=== PATIENT | female | born 1950 | race Caucasian/White ===

== ENCOUNTER 2019-05-11 08:01 | Outpatient (REF) | payer MEDICARE, SELFPAY ==
[2019-05-11 11:27] LABS: Estmated Average Glucose 103; Hemoglobin A1C 5.2 % (4.0-6.0)
[2019-05-11 14:04] LABS: Chol HDL Ratio 3.51 mg/dL (0.0-4.40); Cholesterol 246 mg/dL (0-200); Glucose 83 mg/dL (65-115); HDL Cholesterol 70 mg/dL (60-100); LDL Cholesterol Calculated 152 mg/dL (50-129); LDL HDL Ratio 2.17 RATIO (0.00-3.22); Triglycerides 119 mg/dL (0-150)
== END 2019-05-11 08:02 | disposition home or self-care (01) ==
LOC: LAB 08:01
PROVIDERS: Family Provider Electrodiagnostic Medicine; PCP Electrodiagnostic Medicine; Visit Provider Dermatology
DX: Z01.89 Encounter for other specified special examinations (principal)
CPT/HCPCS: 80061; 82947; 83036

== ENCOUNTER 2020-01-02 09:49 | Outpatient (CLI) | payer MEDICARE, SELFPAY ==
--- NOTE | 2020-01-02 10:02 | MM_ITS ---
WS: [id number] BILATERAL DIGITAL SCREENING MAMMOGRAPHY WITH CAD CLINICAL INFORMATION: SCREENING HISTORY: Screening mammogram. No current complaints. COMPARISON: May 09, 2015 TECHNIQUE: Bilateral CC and MLO views. FINDINGS: Scattered fibroglandular densities bilaterally. No suspicious focal mass, asymmetry, calcifications, or architectural distortion. No evidence of malignancy. Vascular calcification. MM/[place] [id number] IMPRESSION: BI-RADS: 2-Benign FOLLOW UP: 1 Year Follow-up Recommend return to annual screening mammography.
--- NOTE | 2020-01-02 11:45 | USCV_ITS ---
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
== END 2020-01-02 09:50 | disposition home or self-care (01) ==
PROVIDERS: PCP Electrodiagnostic Medicine; Visit Provider Electrodiagnostic Medicine
DX: Z12.31 Encounter for screening mammogram for malignant neoplasm of breast (principal); M79.604 Pain in right leg; M79.605 Pain in left leg
CPT/HCPCS: 77067; 93922

== ENCOUNTER 2020-02-19 12:27 | Outpatient (CLI) | payer MEDICARE, SELFPAY ==
--- NOTE | 2020-02-19 12:45 | USCV_ITS ---
[facility] Age: 69 Gender: F : 1950 Exam Date: 02/19/2020 13:06 Ordering Phys: Deborah Arroyo MD ([email or web address]) Technologist: Kranthi Lindsay [place] [facility] [place]: HISTORY: PROCEDURES: FINDINGS: The veins were found to be easily compressible with spontaneous blood flow. Non pulsatile flow pattern. No significant venous reflux in the deep veins No significant venous reflux in the superficial veins CONCLUSIONS No evidence of DVT in the above-mentioned identifiable veins. No evidence of any superficial vein thrombosis No significant venous reflux either in the superficial or deep veins bilaterally Normal caliber veins bilaterally Dr Deborah Arroyo MD [facility] (Electronically Signed) Final Date: 19 February 2020 18:18 S
== END 2020-02-19 12:28 | disposition home or self-care (01) ==
LOC: RAD 12:32
PROVIDERS: PCP Electrodiagnostic Medicine; Visit Provider Internal Medicine Cardiovascular Disease
DX: M79.89 Other specified soft tissue disorders (principal)
CPT/HCPCS: 93970

== ENCOUNTER → 2020-10-08 10:50 | Outpatient (BNVA) | payer MEDICARE, SELFPAY | PROVIDERS: PCP Electrodiagnostic Medicine; Visit Provider Nurse Practitioner Women's Health | DX: Z01.419 Encounter for gynecological examination (general) (routine) without abnormal findings (principal); R39.15 Urgency of urination; M85.80 Other specified disorders of bone density and structure, unspecified site | CPT/HCPCS: 88175 ==

== ENCOUNTER → 2021-07-08 13:47 | Outpatient (BNVA) | payer MEDICARE, SELFPAY | PROVIDERS: PCP Electrodiagnostic Medicine; Visit Provider Podiatrist Foot & Ankle Surgery | DX: M20.41 Other hammer toe(s) (acquired), right foot (principal); M20.42 Other hammer toe(s) (acquired), left foot; L84 Corns and callosities | CPT/HCPCS: 99203 ==

== ENCOUNTER 2021-07-10 06:22 | Outpatient (CLI) | payer MEDICARE, SELFPAY ==
--- NOTE | 2021-07-10 | USCV_ITS ---
Allyn Judd Age: 71 Gender: F : 1950 Exam Date: 07/10/2021 06:12 Ordering Phys: Kermit Shah DO Technologist: Jose Miguel Ku [place] [facility] [place]: leg pain RIGHT LEFT Brachial 125.00 mmHg Brachial 125.00 mmHg Pressure (mmHg) Waveform Pressure (mmHg) Waveform 143.00 LEGAL MEDIATOR 147.00 145.00 DPA 150.00 1.10 Ankle/Brachial Index 1.10 117.00 Pre-Exercise Toe Pressure 96.00 0.92 Pre-Exercise Toe/Brachial Index 0.76 FINDINGS Normal resting ABIs bilaterally Normal resting TBIs bilaterally CONCLUSIONS No evidence of any significant arterial obstruction, based on the above findings. Dr Deborah Arroyo MD [facility] (Electronically Signed) Final Date: 10 July 2021 18:46 S
== END 2021-07-10 06:23 | disposition home or self-care (01) ==
LOC: RAD 06:23
PROVIDERS: PCP Electrodiagnostic Medicine; Visit Provider Electrodiagnostic Medicine
DX: M79.604 Pain in right leg (principal)
CPT/HCPCS: 93922

== ENCOUNTER → 2021-09-14 16:15 | Outpatient (BNVA) | payer MEDICARE, SELFPAY | PROVIDERS: PCP Electrodiagnostic Medicine; Visit Provider Obstetrics & Gynecology | DX: N81.10 Cystocele, unspecified (principal) | CPT/HCPCS: 87086 ==

== ENCOUNTER → 2021-09-25 12:05 | Outpatient (BNVA) | payer MEDICARE, SELFPAY | PROVIDERS: PCP Electrodiagnostic Medicine; Visit Provider Obstetrics & Gynecology | DX: N81.2 Incomplete uterovaginal prolapse (principal); R39.15 Urgency of urination; Z87.440 Personal history of urinary (tract) infections | CPT/HCPCS: 81000; 87086 ==

== ENCOUNTER 2021-12-09 14:15 | Observation (INO) | payer MEDICARE, SELFPAY ==
--- NOTE | 2021-12-08 14:24 | ANES.PREANE2 ---
Pre-Anesthetic Assessment Height/Weight: Height 1.63 m Operation Date: 12/09/21 08:50 Proposed Procedures p Total vagina hysterectomy, bilateral salpingo-oohorectomy 21397, anterior and posterior colporrhaphy 90842, Single incison sling 33928,N81.2,N81.0,N81.6(Not Applicable) - Nitin Dixon MD s Salpingo-Oophorectomy (Vaginal)(Bilateral) - Nitin Dixon MD s Anterior Repair Anterior Colporrhaphy(Not Applicable) - Nitin Dixon MD s Posterior Repair Posterior Colporrhaphy(Not Applicable) - Nitin Dixon MD s Sling Single Incision Sling(Not Applicable) - Nitin Dixon MD Familial anesthetic complications: None Social No alcohol and No tobacco Exam alert, oriented x 3, clear to auscultation bilaterally and regular rate & rhythm Airway Mallampati: Class II Dentition: false and partials Pulmonary None reported CV/HEM None reported None reported Hepatic None reported GI None reported Metabolic [place] [facility] [place] None reported Neuropsych None reported Anesthetic Plan ASA status: 2 Risk of > 500 ml blood loss (7ml/kg in children): No Medications/Allergies Home Medications Medication Instructions Recorded Confirmed Last Taken Type coenzyme Q10 200 mg capsule (Co 200 mg PO DAILY 01/30/20 12/08/21 Unknown History Q-10) ascorbate calcium (vitamin C) 500 500 mg PO DAILY 09/14/21 12/08/21 Unknown History mg tablet cholecalciferol (vitamin D3) 50 50 mcg PO DAILY 09/14/21 12/08/21 Unknown History mcg (2,000 unit) capsule levothyroxine 100 mcg capsule 100 mcg PO DAILY 09/14/21 12/08/21 Unknown History magnesium carbonate PO 09/14/21 12/08/21 Unknown History multivitamin 1 tab PO DAILY 09/14/21 12/08/21 Unknown History omega 9-unt-rrj-fish oil 60 mg-90 1 cap PO DAILY 09/14/21 12/08/21 Unknown History mg-500 mg capsule (Fish Oil) cranberry 400 mg capsule 400 mg PO DAILY 12/08/21 12/08/21 Unknown History lactobacillus combination no.4 3 3,000 mmu cells PO DAILY 12/08/21 12/08/21 Unknown History billion cell capsule (Probiotic) melatonin 5 mg capsule mg PO .hs PRN 12/08/21 12/08/21 Unknown History zinc acetate PO .daily 12/08/21 12/08/21 Unknown History Allergies Allergy/AdvReac Type Severity Reaction Status Date / Time sulfamethoxazole Allergy Unknown Rash Verified 12/08/21 14:05 [From Bactrim] Tetracyclines Allergy Unknown Rash Verified 12/08/21 14:05 [facility] Anesthesia Medical History (Updated 09/25/21 @ 12:11 by Nitin Dixon MD) Hypothyroid Diagnosed 15 years ago managed by Dr. Shah Mixed hyperlipidemia No pertinent past medical history Denies diabetes, asthma, hypertension, seizures, DVT/PE PCP: Dr. Shah Peripheral arterial disease Vitiligo Surgical History (Updated 09/18/21 @ 12:39 by Vickie Dalton MD) H/O bladder repair surgery (~2012) [place]-- sling . Denies having any surgery on her bladder at that time History of bilateral ligation of fallopian tubes 1977-- via umbilicus History of bunionectomy (~1994) 1994--bilateral History of nasal septoplasty History of tonsillectomy At age 16 Hx of appendectomy 2003--laparoscopic procedure S/P ORIF (open reduction internal fixation) fracture (~2004) left ankle Family History Mother Colon cancer Dx age 74-- was stage four at time of diagnosis Hypertension Stroke Sister Hypertension Denies family history of Ovarian cancer Diabetes Heart disease Hypercholesteremia Breast cancer Uterine cancer Thyroid disease Social History Smoking and tobacco status: former smoker Data Anesthesia Cardiac Studies: No Data to Display
[2021-12-08 14:33] VITALS: BMI 25.9
[2021-12-08 15:24] LABS: Basophils % 0.5 %; Eosinophils % 0.2 %; Hematocrit 40.9 % (37.0-47.0); Lymphocytes # 1.5 10^3/uL (0.8-4.8); Lymphocytes % 27.7 %; Mean Corpuscular HGB Conc 34.2 g/dL (30.0-36.0); Mean Corpuscular Hemoglobin 32.9 pg (28.0-34.0); Mean Corpuscular Volume 96.2 fl (81-99); Mean Platelet Volume 10.6 fL (7.4-10.4); Monocytes # 0.5 10^3/uL (0.2-0.9); Monocytes % 8.7 %; Neutrophils # 3.45 10^3/uL (1.8-7.7); Neutrophils % 62.5 %; Nucleated Red Blood Cells % 0 %; Platelet Count 195 10^3/cmm (130-400); Red Blood Count 4.25 10^6/uL (4.1-5.3); Red Cell Distribution Width 11.4 % (12.1-15.1); White Blood Count 5.5 10^3/uL (4.0-10.0)
[2021-12-09] VITALS (14 sets, daily range): BP systolic 92–126; BP diastolic 47–77; PULSE 72–100; RESP 14–18; TEMP 36.1–36.6; O2SAT 90–97
[2021-12-09] MEDS: sodium chloride 0.9% 500 ML IV (08:04)
[2021-12-09] MEDS: scopolamine 1.5 Patch 1 PATCH TRANSDERMA (08:07)
[2021-12-09] MEDS: enoxaparin 30 mg/0.3 mL Syringe SUBCUT (08:10)
--- NOTE | 2021-12-09 08:27 | P.ANESUD_ITS ---
Pre-Anesthetic Update Pre-Anesthetic Assessment: Date of Surgery/Procedure: 12/09/21 Preop Brigitte gnosis: Uterine prolapse, cystocele stage III Proposed Procedure: Operation Date: 12/09/21 08:50 Proposed Procedures p Total vagina hysterectomy, bilateral salpingo-oohorectomy 14582, anterior and posterior colporrhaphy 44802, Single incison sling 39076,N81.2,N81.0,N81.6(Not Applicable) - Nitin Dixon MD s Salpingo-Oophorectomy (Vaginal)(Bilateral) - Nitin Dixon MD s Anterior Repair Anterior Colporrhaphy(Not Applicable) - MD ema [place] Posterior Repair Posterior Colporrhaphy(Not Applicable) - Nitin Dixon MD s Sling Single Incision Sling(Not Applicable) - Nitin Dixon MD Any changes to Pre-Anesthetic Assessment?: No Last Intake: Intake Last Liquid Date 12/08/21 Last Liquid Time 22:00 Last Solid Date 12/08/21 Last Solid Time 22:00 Labs Last 48hrs: Short CBC 12/08/21 Range/Units 14:30 WBC 5.5 (4.0-10.0) 10^3/ uL Hgb 14.0 (11.5-15.3) g/dL Hct 40.9 (37.0-47.0) % MCV 96.2 (81-99) fl Plt Count 195 (130-400) 10^3/c mm Neut % (Auto) 62.5 % Neut # (Auto) 3.45 (1.8-7.7) 10^3/u L Vitals: Temperature 97.6 F 12/09/21 07:59 Temperature Source Temporal Artery S can 12/09/21 07:59 Pulse Rate 73 12/09/21 07:59 Pulse Rhythm 12/09/21 07:38 Pulse Strength 3+ Normal 12/09/21 07:38 Respiratory Rate 18 12/09/21 07:59 Blood Pressure 125/77 12/09/21 07:59 Blood Pressure Holly n 93 12/09/21 07:59 Pulse Oximetry 95 12/09/21 07:59 Oxygen Delivery Me thod 12/09/21 07:59 Exam: Pre-Anes Outpt Exam: alert, oriented x 3, clear to auscultation bilaterally and regular rate & rhythm Cardiac Studies: No Data to Display
[2021-12-09 08:37] LABS: Basophils % 0.5 %; Hematocrit 42.4 % (37.0-47.0); Hemoglobin 14.5 g/dL (11.5-15.3); Lymphocytes # 1.2 10^3/uL (0.8-4.8); Lymphocytes % 27.3 %; Mean Corpuscular HGB Conc 34.2 g/dL (30.0-36.0); Mean Corpuscular Hemoglobin 32.7 pg (28.0-34.0); Mean Corpuscular Volume 95.7 fl (81-99); Mean Platelet Volume 10.2 fL (7.4-10.4); Monocytes # 0.4 10^3/uL (0.2-0.9); Monocytes % 9.3 %; Neutrophils # 2.67 10^3/uL (1.8-7.7); Neutrophils % 62.4 %; Nucleated Red Blood Cells % 0 %; Platelet Count 187 10^3/cmm (130-400); Red Blood Count 4.43 10^6/uL (4.1-5.3); Red Cell Distribution Width 11.4 % (12.1-15.1); White Blood Count 4.3 10^3/uL (4.0-10.0)
[2021-12-09] MEDS: sodium chloride 0.9% 1,000 ML 30 ML IV (09:05)
[2021-12-09 09:28] LABS: Alanine Aminotransferase 19 U/L (0-33); Alkaline Phosphatase 73 U/L (35-105); Aspartate Amino Transferase 36 U/L (0-32); Blood Urea Nitrogen 16 mg/dL (8-23); Calcium 9.2 mg/dL (8.5-10.5); Carbon Dioxide 23 mmol/L (22-29); Chloride 110 mmol/L (98-107); Globulin 2.5 g/dL (1.3-4.6); Glomerular Filtration Rate 70.9 mL/min (90-130); Glucose 93 mg/dL (65-115); Osmolality Calculated 295 mOsm/kg (285-295); Sodium 142 mmol/L (136-145); Total Bilirubin 0.5 mg/dL (0.15-1.2); Total Protein 6.5 g/dL (6.6-8.7)
[2021-12-09 09:34] LABS: Anion Gap 13.6 (5-19); Potassium 4.6 mmol/L (3.5-5.1)
[2021-12-09 10:28] LABS: Bilirubin Urine Neg (Negative); Blood Urine Neg (Negative); Glucose Urine UA Norm (Normal); Ketones Urine Negative (Negative); Leukocyte Esterase Urine 1+ (Negative); Nitrate Urine Negative (Negative); Protein Urine Neg (Negative); Urine Appearance Clear (CLEAR); Urine Color Yellow (Yellow); Urobilinogen Urine 0.2 mg/dL (Negative); pH Urine 6 (5-7)
[2021-12-09 10:29] LABS: Add Urine Culture? No; Add Urine Microscopic? YES; Squamous Epithelial Cell Urine 0-4 /hpf (0-5); WBC Urine 0-4 /hpf (0-5)
--- NOTE | 2021-12-09 11:06 | W.PM.OPSUD ---
Surgery/Procedure H&P Update DATE OF PROCEDURE: December 09, 2021 DATE H&P PERFORMED: 12/08/21 H&P UPDATE INFORMATION: I have reviewed H&P completed within last 30 days, I have examined patient prior to procedure and No changes to prior documentation PREOP DIAGNOSIS: Uterine prolapse, cystocele stage III PLANNED PROCEDURE: Operation Date: 12/09/21 08:50 Proposed Procedures p Total vagina hysterectomy, bilateral salpingo-oohorectomy 25575, anterior and posterior colporrhaphy 10405, Single incison sling 08509,N81.2,N81.0,N81.6(Not Applicable) - Nitin Dixon MD s Salpingo-Oophorectomy (Vaginal)(Bilateral) - Nitin Dixon MD s Anterior Repair Anterior Colporrhaphy(Not Applicable) - MD ema [place] Posterior Repair Posterior Colporrhaphy(Not Applicable) - Nitin Dixon MD s Sling Single Incision Sling(Not Applicable) - Nitin Dixon MD
[2021-12-09] MEDS: ceFOXitin 2,000 MG in sodium chloride 0.9% (plus) 50 ML 100 MG IV (11:53)
[2021-12-09] MEDS: estrogens Conjugated Cream 30 gm 1 APPLIC VAGINAL (13:40)
--- NOTE | 2021-12-09 13:46 | P.OP_ITS ---
Operative Report Date of procedure: December 09, 2021 Pre-op diagnosis: Preop Diagnosis Uterine prolapse, cystocele stage III Post-op diagnosis: Same as above Post-op findings: Uterine prolapse stage III. Cystocele stage III. Rectocele stage II Procedure done: Total vaginal hysterectomy. Anterior colporrhaphy augmented with allograft. Single incision mid urethral sling Posterior colporrhaphy. Cystoscopy. Specimens removed/disposition: Uterus Surgeon: Nitin Dixon MD Estimated blood loss (mL): 100 IV fluids (mL): 1,000 Urine output (mL): 300 Complications: None Procedure: After informed consent, the patient was taken to the operating room where general anesthesia was administered. She was placed in the dorsal lithotomy position and prepped and draped in sterile fashion. Pre-Procedure Time-Out verifying the correct patient identity, correct procedure verified with consent, correct site and side, correct patient position, availability of correct i mplants and any special equipment or requirements was performed and acknowledge by the OR team. A weighted speculum was placed in the posterior vaginal wall and the right-angle retractor used to visualize the cervix. The cervix was grasped across the anterior lip with a single-toothed tenaculum and circumferentially infiltrated with 1% Xylocaine with epinephrine at this time. A Bookwalter vaginal retractor was placed. The cervix was circumferentially excised with the scalpel. The vaginal mucosa was dissected superiorly with sharp dissection. The anterior peritoneal reflection was identified, and it was entered with Metzenbaum scissors. A posterior colpotomy was made through the cul-de-sac space. The posterior peritoneum was identified in similar fashion and Metzenbaum scissors were used to enter the cul-de-sac. At this time, posterior blade of A Bookwalter vaginal retractor was placed, advanced posteriorly into the cul-de-sac. At this time, the left and right uterosacral ligaments were isolated and ligated with 0 Vicryl. The LigaSure device was then used in a serial fashion up through the cardinal ligaments bilaterally. Finally, the uterine arteries were cross-clamped, cut, and ligated with the LigaSure device. LigaSure device was then used up through the broad ligaments superiorly and finally the uterus was rotated posteriorly. The left and right tubes were then cross-clamped and ligated with LigaSure device. The uterus was excised and submitted for pathologic evaluation. No other abnormalities were noted in the pelvic cavity. Tag sutures had been left on the remnants of the uterosacral ligaments. The right uterosacral ligament tag was placed under traction to identify the remnants of the right uterosacral ligament. A #0 PDS suture was placed to the proximal right uterosacral ligament and sutured to the anterior and posterior pelvic fascia beneath the vaginal cuff on the right side. Identical process was performed on the left, although some difficulty was encountered in identifying and actually suturing through the attenuated left uterosacral ligament. Both these sutures were tied to elevate the vaginal cuff. The remaining vaginal cuff mucosa and anterior and posterior fascia were then closed. At this time, instruments were removed from the patient's abdominopelvic cavity. Vaginal cuff closure and peritoneum were incorporated into one layer with 0 Vicryl suture in a continuous running interlocking fashion. Hemostasis was noted to be achieved. Then an anterior colporrhaphy was performed. The vaginal mucosa was then injected in the midline with normal saline. The vaginal mucosa was then injected in the midline with normal saline. The vaginal mucosa was scored in the midline with the Bovie approximately 1 cm medial to the urethral meatus to 1 cm distal to the vaginal cuff. This vaginal mucosa was then undermined and then incised in the midline with the Metzenbaum scissors. The lateral aspects of the vaginal mucosa were then grasped with the Allis clamps and the vaginal mucosa was then dissected off the underlying fascia with the Metzenbaum scissors. Again, there was noted to be quite a bit of oozing at the incision, which was controlled with cautery. After adequate dissection was performed, bilaterally. The Coloplast allograft was modified at time of application to fit spacea, 3 x 3 cm piece . The allograft was placed in front of cystocele facing the vagina mucosa. Suture is placed at distal end of graft and placed towards vaginal cuff. Final suture is placed on proximal portion of the graft to complete the placement overlying the bladder. Then Interrupted vertical mattress sutures of 0 Vicryl were used to elevate the cystocele superiorly. The excessive vaginal mucosa was then trimmed with the Metzenbaum scissors and the vaginal mucosa was then reapproximated in the running interlocking fashion with 2-0 Vicryl. Posterior colpoperineorrhaphy was performed with Allis clamps to grasp hymenal caruncles to allow 2-3 fingerbreadths caliber; infiltrated with 1% Lidocaine with epinephrine before triangular incision to excise fibrotic subdermal rectovaginal tissue from old perineal laceration. Fascia dissected off towards vaginal cuff and deemed weakened and thinned-out in midline; colporrhaphy performed with interrupted mattress 0-Vicryl sutures before reinforced with a tension-free 5x5 cms ``in-laid patch of porcine graft towards perineal body after a separate crown stitch with 0-Vicryl performed. Field irrigated; hemostasis secured before vaginal incision closed running-locked with 3-0 Vicryl. Then the Pope catheter was removed and cystoscope was inserted. The bladder was filled with sterile water. Complete evaluation of the bladder mucosa was performed noting no lacerations, dimpling, tears, bleeding of the mucosa or muscular layers. Both ureteral orifices were identified. Prompt excretion of urine from both ureteral orifices was noted. Cystoscope was withdrawn. Pope catheter was then placed yielding clear jeff urine. A vaginal packing with Premarin cream was placed to provide support during the healing process. The patient tolerated the procedure well and was taken to the recovery room in a stable condition. Sponge and needle counts were correct x3.
--- NOTE | 2021-12-09 14:34 | SUR.PHASEI ---
1355 SCDS ON PUMP AND WORKING.
[2021-12-09] MEDS: ondansetron 2 mg/ML SDV 2 mL 4 MG IVP (14:45)
[2021-12-09] MEDS: dextrose 5%-lactated ringers 1,000 ML 125 ML IV ×2 (15:35→23:36)
--- NOTE | 2021-12-09 15:46 | ANE.PACU2 ---
Inpatient post-anesthesia follow up: Airway intact: Yes Vital signs: Temperature 97.7 F Pulse Rate 80 Respiratory Rate 17 Blood Pressure 112/72 Pulse Oximetry 96 Oxygen Delivery Me thod Room Air Oxygen Flow Rate 6 Fraction of Inspir ed Oxygen Hydration adequate: Yes Nausea and vomiting: No Pain level: 2 Mental status: Baseline
[2021-12-09] MEDS: docusate sodium 100 mg Capsule PO (17:53)
[2021-12-09] MEDS: ketorolac 30 mg/mL INJ IVP (20:56)
[2021-12-09] MEDS: alum-mag-hydroxide-sime 30 mL UDC PO (23:32)
[2021-12-10] MEDS: ketorolac 30 mg/mL INJ IVP ×2 (03:01→09:21)
[2021-12-10 03:54] VITALS: BP 92/54; PULSE 76; RESP 17; TEMP 36.8; O2SAT 95
[2021-12-10 06:20] LABS: Hematocrit 34.6 % (37.0-47.0); Hemoglobin 11.5 g/dL (11.5-15.3); Mean Corpuscular HGB Conc 33.2 g/dL (30.0-36.0); Mean Corpuscular Hemoglobin 32.7 pg (28.0-34.0); Mean Corpuscular Volume 98.3 fl (81-99); Mean Platelet Volume 10.1 fL (7.4-10.4); Platelet Count 156 10^3/cmm (130-400); Red Blood Count 3.52 10^6/uL (4.1-5.3); Red Cell Distribution Width 11.5 % (12.1-15.1); White Blood Count 8.9 10^3/uL (4.0-10.0)
--- NOTE | 2021-12-10 06:30 | PC.NURSE ---
Pope catheter removed. Vaginal packing removing. Patient has thin sanguinous drainage noted. Patient offered marquita pads.
--- NOTE | 2021-12-10 07:18 | PC.NURSE ---
Bedside report received from Teja RANDALL
--- NOTE | 2021-12-10 07:40 | PC.NURSE ---
patients first void since cath removal at 0600, Void amount 250ml and PVR 43ml
[2021-12-10 07:51] VITALS: PULSE 76; RESP 18; O2SAT 95
[2021-12-10 08:00] VITALS: BP 107/65; PULSE 73; RESP 16; TEMP 36.8; O2SAT 92
[2021-12-10] MEDS: docusate sodium 100 mg Capsule PO (09:21)
[2021-12-10] MEDS: levothyroxine 100 mcg Tablet PO (09:21)
--- NOTE | 2021-12-10 10:52 | PC.CHAP ---
Pastoral Care Encounter/Spiritual Assessment Type of Contact [] Declined compensation supervisor visit [] Patient/Family/Request visit [] Outpatient visit [] Follow-up visit [] Physician referral [] Code/Alert [x] Routine visit [] Staff referral [] Actively dying [] Patient sleeping [] Family support [] [] Out of room [] Palliative care [] [x] Receiving care in room [] Pre-surgical visit [] Trauma [] Long length of stay [] ICU visit [] Other: Relational/Emotional Strength [x] Patient feels connected with others/family/visitors/staff [] Distress [] Loneliness/isolation [] Abandonment Spirituality of Patient [x] Person of Kiana [] Attends Mu-Ism of their Kiana [] Believes in Prayer [] Reads Bible or Jewish materials [] There are Spiritual issues to be addressed Tour Operator Interventions [x] Prayer [x] Active listening [x] Non-anxious presence [x] Spiritual/emotional support [] Crisis/trauma care [x] Spiritual counseling [] Bereavement support [] Provided bereavement packet [] Provided Bible/devotional materials [] Provided toy/stuffed animal, coloring book to patient or family member [] Provided Communion [] Anointing/[place] [] Salvation [x] Completed spiritual assessment [] Other: Impact on Illness or Injury [] Angry [] Fearful [] Anxious [] Often cries [] Exhaustion [] Unable to work [] Unable to attend denominational [] Unable to walk/stand [] Unable to read [] Unable to drive [] Unable to eat/drink [] Unable to sleep [] Unable to be with family [] Patient intubated [] Other: Summary had surgery feels good has a good attitude going home Time spent with patient 10 mins
--- NOTE | 2021-12-10 11:15 | P.DS_ITS ---
Discharge Providers ADMISSIONS CONSULTANT Date of Admission: 12/09/21 14:15 Date of Discharge: 12/10/21 Attending Provider at Admission: Nitin Dixon MD Attending Provider at Discharge: Nitin Dixon MD Primary ADMISSIONS CONSULTANT: Nitin Dixon MD Primary Care Provider: Kermit Shah DO Reason for Visit Reason for Visit: Stage III uterovaginal prolapse Hospital Course Hospital Course Mrs. Judd 71-year-old female, with a stage III uterovaginal prolapse was admitted for planned total vaginal hysterectomy with anterior colporrhaphy augmented with allograft, single incision mid urethral sling and posterior colporrhaphy. The procedures were performed without complications. Postop overnight observation was uneventful. PVR within normal limits. Tolerating diet well. Ambulating without difficulty. She is afebrile and hemodynamically stable postoperative day 1. Physical Exam Narrative: GA: Alert and oriented ?3. HEENT: WNL. Heart: Regular rate and rhythm. Lungs: Clear to auscultation bilaterally. Abdomen: Bowel sounds present, nontender. 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 Extremities: No edema, no cyanosis, no calves pain. Urinary Catheter Management: Pope: Cath Placed During This Visit: yes Urinary Catheter Date of Insertion: 12/09/21 Urinary Catheter Time of Insertion: 12:03 History History History 2 Term 2 0 Miscarriages/Ectopic 0 Living Children 2 Discharge Data Studies Completed and Pending Pending at discharge Category Date Time Status Pathology: Surgical [PTH] Routine Pth 12/09/21 13:03 Received Laboratory Results WBC 8.9 10^3/uL (4.0-10.0) 12/10/21 06:03 RBC 3.52 10^6/uL (4.1-5.3) L 12/10/21 06:03 Hgb 11.5 g/dL (11.5-15.3) 12/10/21 06:03 Hct 34.6 % (37.0-47.0) L 12/10/21 06:03 MCV 98.3 fl (81-99) 12/10/21 06:03 MCH 32.7 pg (28.0-34.0) 12/10/21 06:03 MCHC 33.2 g/dL (30.0-36.0) 12/10/21 06:03 RDW 11.5 % (12.1-15.1) L 12/10/21 06:03 Plt Count 156 10^3/cmm (130-400) 12/10/21 06:03 MPV 10.1 fL (7.4-10.4) 12/10/21 06:03 Neut % (Auto) 62.4 % 12/09/21 07:51 Lymph % (Auto) 27.3 % 12/09/21 07:51 [place] % (Auto) 9.3 % 12/09/21 07:51 Eos % (Auto) 0.0 % 12/09/21 07:51 Baso % (Auto) 0.5 % 12/09/21 07:51 Neut # (Auto) 2.67 10^3/uL (1.8-7.7) 12/09/21 07:51 Lymph # (Auto) 1.2 10^3/uL (0.8-4.8) 12/09/21 07:51 [place] # (Auto) 0.4 10^3/uL (0.2-0.9) 12/09/21 07:51 Eos # (Auto) 0.0 10^3/uL (0.0-0.8) 12/09/21 07:51 Baso # (Auto) 0.0 10^3/uL (0.0-0.1) 12/09/21 07:51 Nucleated RBC % (auto) 0 % 12/09/21 07:51 Nucleated RBCs # 0.0 /100WBC 12/09/21 07:51 Sodium 142 mmol/L (136-145) 12/09/21 07:51 Potassium 4.6 mmol/L (3.5-5.1) 12/09/21 07:51 Chloride 110 mmol/L (98-107) H 12/09/21 07:51 Carbon Dioxide 23 mmol/L (22-29) 12/09/21 07:51 Anion Gap 13.6 (5-19) 12/09/21 07:51 BUN 16 mg/dL (8-23) 12/09/21 07:51 Creatinine 0.8 mg/dL (0.5-0.9) 12/09/21 07:51 GFR Calculation 70.9 mL/min (90-130) L 12/09/21 07:51 Glucose 93 mg/dL (65-115) 12/09/21 07:51 Calculated Osmolality 295 mOsm/kg (285-295) 12/09/21 07:51 Calcium 9.2 mg/dL (8.5-10.5) 12/09/21 07:51 Total Bilirubin 0.5 mg/dL (0.15-1.2) 12/09/21 07:51 AST 36 U/L (0-32) H 12/09/21 07:51 ALT 19 U/L (0-33) 12/09/21 07:51 Alkaline Phosphatase 73 U/L (35-105) 12/09/21 07:51 Total Protein 6.5 g/dL (6.6-8.7) L 12/09/21 07:51 Albumin 4.0 g/dL (3.5-5.2) 12/09/21 07:51 Globulin 2.5 g/dL (1.3-4.6) 12/09/21 07:51 Urine Color Yellow (Yellow) 12/09/21 09:50 Urine Appearance Clear (CLEAR) 12/09/21 09:50 Urine pH 6 (5-7) 12/09/21 09:50 Ur Specific [place] 1.010 (1.005-1.030) 12/09/21 09:50 Urine Protein Neg (Negative) 12/09/21 09:50 Urine Glucose (UA) Norm (Normal) 12/09/21 09:50 Urine Ketones Negative (Negative) 12/09/21 09:50 Urine Blood Neg (Negative) 12/09/21 09:50 Urine Nitrate Negative (Negative) 12/09/21 09:50 Urine Bilirubin Neg (Negative) 12/09/21 09:50 Urine Urobilinogen 0.2 mg/dL (Negative) 12/09/21 09:50 Ur Leukocyte Esterase 1+ (Negative) H 12/09/21 09:50 Urine RBC None /hpf (0-2) 12/09/21 09:50 Urine WBC 0-4 /hpf (0-5) H 12/09/21 09:50 Ur Squamous Epith Cells 0-4 /hpf (0-5) H 12/09/21 09:50 Amorphous Sediment Not Reportable 12/09/21 09:50 Urine Bacteria None /hpf (NONE) 12/09/21 09:50 Blood Type O Negative 12/09/21 07:51 Rho(D) Type Negative 12/09/21 07:51 Antibody Screen Negative 12/09/21 07:51 Vitals Last Vital Signs Temp 98.2 F 12/10/21 08:00 Pulse 73 12/10/21 08:00 Resp 16 12/10/21 08:00 BP 107/65 12/10/21 08:00 Pulse Ox 92 12/10/21 08:00 O2 Del Method 12/10/21 08:00 O2 Flow Rate 6 12/10/21 08:00 Discharge Plan Discharge Patient Disposition: Home Condition: Stable Prescriptions: New hydrocodone-acetaminophen 5-325 mg tablet 1 tab PO Q4H PRN (Reason: pain) Qty: 30 0RF docusate sodium [Colace] 100 mg capsule 100 mg PO BID Qty: 60 0RF acetaminophen 325 mg capsule 325 mg PO Q4H PRN (Reason: fever or pain) Qty: 60 0RF ibuprofen 800 mg tablet 800 mg PO TID PRN (Reason: pain) Qty: 60 0RF Continued coenzyme Q10 [Co Q-10] 200 mg capsule 200 mg PO DAILY levothyroxine 100 mcg capsule 100 mcg PO DAILY multivitamin Tablet 1 tab PO DAILY cholecalciferol (vitamin D3) 50 mcg (2,000 unit) capsule 50 mcg PO DAILY ascorbate calcium (vitamin C) 500 mg tablet 500 mg PO DAILY magnesium carbonate 1 tab PO DAILY omega [id number]-[id number]-fish oil [Fish Oil] 60-90-500 mg capsule 1 cap PO DAILY cranberry 400 mg capsule 400 mg PO DAILY Rx Instructions: administer with a meal melatonin 5 mg capsule 5 mg PO .hs PRN (Reason: Sleep) Probiotic 3 billion cell capsule 3,000 mmu cells PO DAILY Rx Instructions: administer with a meal zinc acetate 1 tab PO .daily Discharge Orders: Discharge Order (Routine); Ordered 12/10/21 Ordered By: Nitin Dixon Discharge Diet: Soft Mechanical Discharge Activity: Limit activity as instructed Patient Instructions: Opioid Safety, Vaginal Hysterectomy (GEN), Enterocele Repair (GEN), Bladder Sling for Women (GEN), Posterior Vaginal Repair (GEN), Anterior Vaginal Repair (GEN) Activity Restrictions/Additional Instructions: 1. Please call [facility] on next working day to make your post-operative appointment in 2 weeks. 2. Please stay home until you come back to the clinic on first post-operative check up. 3. Please follow instructions on your medications CAREFULLY. 4. If you have abdominal incision, do not cover it unless dressing is necessary because of drainage. OK to shower, but avoid bath. Leave steri-strips until they fall off. If they are still on one week after surgery, you may remove them. 5. If you had vaginal surgery or vaginal repair, Dr. Dixon may instruct you to take SITZ bath. 6. Yellow, blood tinged odorous vaginal discharge is usually normal after hysterectomy or vaginal surgeries. 7. No sexual intercourse, tampons, or douches until you are completely released from the post-operative care. 8. Avoid constipation by eating right and maybe using some Metamucil or Milk of Magnesia. 9. All prescription refills are given during the working hours. Please do no wait till it runs out. Call the clinic at [phone] before your medication runs out. The clinic will get in touch with your doctor to prescribe medications if necessary. 10. Please remain within 40 mile radius from our hospital because emergencies do happen now and then during the post-operative period. 11. If you have stairs at home, take one step at a time slowly and minimize the number of trips. It helps to stay in one floor for the next few days. No lifting except what you can lift by one hand until you are released from the post-operative care. 12. Driving is discouraged until you are well healed. It may be 3-4 weeks before you feel strong enough to drive. You should be able to turn and look through the rear window without pain and you should be able to push the brake pedal very hard without pain before you drive. No fast rules, but SAFETY should be your primary concern. DO NOT drive if you are on sedating medications such as narcotics. 13. Call the clinic (during working hours) to make urgent appointment or go to the Emergency room, if any of the following occurs: i. Vaginal bleeding becomes heavy, more than a period. ii. Incision becomes red and sore, or drains pus. iii. Your temperature is over 100.4 or you have chill. iv. IV site becomes red and swollen (a little ``knot?? is usually OK) v. Persistent nausea and vomiting vi. Persistent constipation or diarrhea vii. Rash or allergic reaction to medications. Discharge Attestations ADMISSIONS CONSULTANT Time Spent in Discharge Care*: greater than 30 min Coding Level of Care Code Acute Farm Technician for Shira Vaughn
[2021-12-10 12:00] VITALS: BP 90/56; PULSE 79; RESP 16; TEMP 36.7; O2SAT 94
[2021-12-10 13:02] VITALS: BP 90/56; PULSE 79; RESP 16; TEMP 36.7; O2SAT 94
--- NOTE | 2021-12-10 13:04 | PC.NURSE ---
Discharge Note Patient discharged to home via private vehicle accompanied by friend. Discharge instructions reviewed with patient and/or delivery representative. Mobile pharmacy medications and/or prescriptions provided. Belongings/home medications returned.
== END 2021-12-10 13:04 | disposition home or self-care (01) ==
LOC: MEDSURG 14:16
PROVIDERS: Anesthesiology; Admitting Provider Obstetrics & Gynecology; PCP Electrodiagnostic Medicine; Visit Provider Obstetrics & Gynecology
PROC: (CPT 57260; principal; 2021-12-09 08:40)
PROC: 0JQC0ZZ Repair Pelvic Region Subcutaneous Tissue and Fascia, Open Approach (ICD-10-PCS; CPT 57240; 2021-12-09 08:40)
PROC: (CPT 57250; 2021-12-09 08:40)
PROC: (CPT 57288; 2021-12-09 08:40)
DX: N81.4 Uterovaginal prolapse, unspecified (principal); E03.9 Hypothyroidism, unspecified; E78.2 Mixed hyperlipidemia; Z87.891 Personal history of nicotine dependence
CPT/HCPCS: 57260; 57267; 57288; 58260; 36415; 51798; 80053; 81001; 85025; 85027; 86850; 86900; 88305; C1713; C1762; G0378; J0694; J1170; J1650; J1885; J2405; J2704; J3010; J3490; J7030; J7040; Q9968

== ENCOUNTER → 2024-05-21 14:41 | Outpatient (BNVA) | payer MEDICARE, SELFPAY | PROVIDERS: PCP Electrodiagnostic Medicine; Visit Provider Family Medicine | DX: J06.9 Acute upper respiratory infection, unspecified (principal) | CPT/HCPCS: 87400 ==

== ENCOUNTER → 2025-02-07 07:15 | Outpatient (BNVA) | payer MEDICARE, SELFPAY | PROVIDERS: PCP Electrodiagnostic Medicine; Visit Provider Podiatrist Foot & Ankle Surgery | DX: L60.0 Ingrowing nail (principal) | CPT/HCPCS: 11750; 99203; J9999 ==

== ENCOUNTER → 2025-02-20 07:16 | Outpatient (BNVA) | payer MEDICARE, SELFPAY | PROVIDERS: PCP Electrodiagnostic Medicine; Visit Provider Podiatrist Foot & Ankle Surgery | DX: L60.0 Ingrowing nail (principal) | CPT/HCPCS: 99213 ==